=== PATIENT | male | born 1980 | race African-American/Black ===

== ENCOUNTER 2017-04-05 21:22 | Emergency (ER) | payer OTHER ==
[~2017-04-05] VITALS: Ht 182.9 cm; Wt 115.0 kg
[2017-04-05 21:23] VITALS: BP 173/98; PULSE 63; RESP 16; TEMP 98.3; O2SAT 100
--- NOTE | 2017-04-05 21:55 | PD ---
HPI Chief Complaint: Chest Pain Time Seen by Provider: 21:49 Travel History International Travel<30 days: No Contact w/Intl Traveler<30days: No Traveled to known affect area: No History of Present Illness HPI 36 year-old male presents to the emergency department by private transportation for complaint of right-sided anterior chest wall pain times one week. Patient states symptoms began 1 week ago when he injured himself at work while pulling a 75 pound cage out of a crate. Patient states he went to a local emergency department for evaluation was told that he had torn a chest muscle was started on Naprosyn and told to follow up as an outpatient. Patient states symptoms have persisted all week and took his last dose of Naprosyn this morning and no resolution of symptoms and decided to come to the emergency room at this time. Patient is not reporting any associated symptoms of nausea vomiting sweats or referred neck jaw back shoulder arm pain. Patient states that he has noted that his blood pressure becomes elevated associated with the pain which makes him feel short of breath. This was also noted at the emergency department with his initial visit last week. Patient states he has no chronic medical conditions takes no prescription medications other than recent prescribed Naprosyn. Patient denies history of hypertension dyslipidemia CAD COPD diabetes asthma tobacco use musculoskeletal pain GI issues or previous surgeries. Patient denies any allergies to medications. Patient rates his pain 5-8/10 in intensity and is worsened by direct palpation of the upper right anterior chest wall. Patient is not noticed any fever or chills. Patient has not had a cough. Patient denies pleuritic pain. Patient does not report any hemoptysis. Patient has not noticed any swelling or bruising redness increased warmth and has not sustained any abrasion to the chest wall. [facility] Past Medical History Narrative Medical Right anterior wall muscle injury, possible hypertension; no tobacco use alcohol use; nursing notes reviewed Immunizations Current: Yes Tetanus Vaccination: Unknown Influenza Vaccination: No Social History Alcohol Use: No Tobacco Use: Yes Substance Use: No Allergies-Medications (Allergen,Severity, Reaction): Coded Allergies: No Known Allergies (Unverified , 04/05/17) Narrative Medication Naprosyn Review of Systems Except as stated in HPI: all other systems reviewed are Neg General / Constitutional: No: Fever, Chills Eyes: No: Visual changes HENT: No: Congestion Cardiovascular: Positive: Chest Pain or Discomfort (right anterior chest wall) Respiratory: Positive: Shortness of Breath Gastrointestinal: No: Nausea, Vomiting, Abdominal Pain Genitourinary: No: Decreased Urinary Output, Flank Pain Musculoskeletal: No: Myalgias, Arthralgias Skin: No Rash Neurologic: No: Weakness, Dizziness, Syncope Psychiatric: No: Anxiety Endocrine: No: Heat Intolerance Hematologic/Lymphatic: No: Easy Bruising Physical Exam Narrative GENERAL: Well-developed well-nourished male in no acute distress no respiratory distress SKIN: Warm and dry. HEAD: Normocephalic. EYES: No scleral icterus. No injection or drainage. NECK: Supple, trachea midline. No JVD or lymphadenopathy. CARDIOVASCULAR: Regular rate and rhythm without murmurs, gallops, or rubs. Chest wall: Right anterior upper chest wall tenderness to direct palpation reproduces pain of presentation no ecchymosis no abrasion no increased warmth no crepitus no bony abnormality. RESPIRATORY: Breath sounds equal bilaterally. No accessory muscle use. GASTROINTESTINAL: Abdomen soft, non-tender, nondistended. MUSCULOSKELETAL: No cyanosis, or edema. BACK: Nontender without obvious deformity. No CVA tenderness. Data Data Last Documented VS Vital Signs Date Time Temp Pulse Resp B/P (MAP) Pulse Ox O2 Delivery O2 Flow Rate FiO2 04/05/17 22:01 65 16 99 04/05/17 22:00 Room Air 04/05/17 22:00 04/05/17 21:23 98.3 Orders Orders Electrocardiogram (04/05/17 21:49) Basic Metabolic Panel (Bmp) (04/05/17 21:49) Ckmb (Isoenzyme) Profile (04/05/17 21:49) Complete Blood Count With Diff (04/05/17 21:49) Magnesium (Mg) (04/05/17 21:49) Prothrombin Time / Inr (Pt) (04/05/17 21:49) Act Partial Throm Time (Ptt) (04/05/17 21:49) Troponin I (04/05/17 21:49) Chest, Single Ap (04/05/17 21:49) Ecg Monitoring (04/05/17 21:49) Bilateral Bp Monitoring (04/05/17 21:49) Iv Access Insert/Monitor (04/05/17 21:49) Oximetry (04/05/17 21:49) Oxygen Administration (04/05/17 21:49) Aspirin Chew (Aspirin Chew) (04/05/17 22:00) Sodium Chloride 0.9% Flush (Ns Flush) (04/05/17 22:00) CKMB (04/05/17 21:50) CKMB% (04/05/17 21:50) Ua Includes Microscopic (04/05/17 22:38) Ketorolac Inj (Toradol Inj) (04/05/17 22:45) Sodium Chlorid 0.9% 500 Ml Inj (Ns 500 M (04/05/17 22:45) Amlodipine (Norvasc) (04/05/17 23:30) Labs Laboratory Tests Test 04/05/17 21:50 04/05/17 22:55 White Blood Count 7.9 TH/MM3 Red Blood Count 4.73 MIL/MM3 Hemoglobin 14.4 GM/DL Hematocrit 42.6 % Mean Corpuscular Volume 90.2 FL Mean Corpuscular Hemoglobin 30.5 PG Mean Corpuscular Hemoglobin Concent 33.9 % Red Cell Distribution Width 14.0 % Platelet Count 283 TH/MM3 Mean Platelet Volume 8.1 FL Neutrophils (%) (Auto) 50.3 % Lymphocytes (%) (Auto) 40.6 % Monocytes (%) (Auto) 5.6 % Eosinophils (%) (Auto) 2.8 % Basophils (%) (Auto) 0.7 % Neutrophils # (Auto) 4.0 TH/MM3 Lymphocytes # (Auto) 3.2 TH/MM3 Monocytes # (Auto) 0.4 TH/MM3 Eosinophils # (Auto) 0.2 TH/MM3 Basophils # (Auto) 0.1 TH/MM3 CBC Comment DIFF FINAL Differential Comment Prothrombin Time 10.7 SEC Prothromb Time International Ratio 1.1 RATIO Activated Partial Thromboplast Time 33.3 SEC Blood Urea Nitrogen 15 MG/DL Creatinine 1.37 MG/DL Random Glucose 106 MG/DL Calcium Level 9.1 MG/DL Magnesium Level 2.1 MG/DL Sodium Level 137 MEQ/L Potassium Level 3.8 MEQ/L Chloride Level 105 MEQ/L Carbon Dioxide Level 26.7 MEQ/L Anion Gap 5 MEQ/L Estimat Glomerular Filtration Rate 70 ML/MIN Total Creatine Kinase 728 U/L Creatine Kinase MB 2.4 NG/ML Creatine Kinase MB % 0.3 % Troponin I LESS THAN 0.02 NG/ML Urine Color YELLOW Urine Turbidity CLEAR Urine pH 5.5 Urine Specific [place] 1.031 Urine Protein TRACE mg/dL Urine Glucose (UA) NEG mg/dL Urine Ketones TRACE mg/dL Urine Occult Blood NEG Urine Nitrite NEG Urine Bilirubin NEG Urine Urobilinogen 2.0 MG/DL Urine Leukocyte Esterase NEG Urine RBC 1 /hpf Urine WBC LESS THAN 1 /hpf Urine Mucus FEW /lpf MDM Medical Decision Making Medical Screen Exam Complete: Yes Emergency Medical Condition: Yes Medical Record Reviewed: Yes Interpretation(s) EKG: Normal sinus rhythm rate [address] elevation injury pattern or ectopy noted Troponin I less than 0.02 CK total 728 with normal range MB and MB percent Last Impressions Chest X-Ray 04/05/172148 Signed Impressions: Service Date/Time: Wednesday, April 05, 2017 21:57 - CONCLUSION: No acute disease. Kingsley Fontaine MD CBC & BMP Diagram 04/05/17 21:50 Calcium Level 9.1, Magnesium Level 2.1 Vital Signs Date Time Temp Pulse Resp B/P (MAP) Pulse Ox O2 Delivery O2 Flow Rate FiO2 04/05/17 22:01 65 16 99 04/05/17 22:00 99 Room Air 04/05/17 22:00 99 Room Air 04/05/17 22:00 65 16 150/79 (102) 170/97 (121) 04/05/17 21:23 98.3 63 16 173/98 (123) 100 Room Air Differential Diagnosis Chest pain, musculoskeletal pain, rib fracture, pneumothorax, ACS, TN, PE, pneumonia Narrative Course Patient placed on alarm security or surveillance monitor with continuous pulse oximetry; EKG performed shows sinus rhythm no acute ST elevation injury pattern or ectopy; patient administered aspirin 162 mg by mouth; specimens collected and sent for resulting EKG no acute injury pattern; troponin I less than 0.02; CK total is elevated but MB percent is in normal range and MB is not elevated consistent with probable musculoskeletal elevation associated with muscle tear Patient administered Toradol 30 mg IV @ 23:20 right chest wall pain 3/10 patient reports markedly improved and aware htn diagnosis will be started on antihypertensive medication mild rhabdomyolysis from muscle tear Diagnosis Primary Impression: Right-sided chest wall pain Additional Impressions: HTN (hypertension) Traumatic rhabdomyolysis Qualified Codes: T79.6XXA - Traumatic ischemia of muscle, initial encounter Referrals: Primary Care Physician 2 days Patient Instructions: General Instructions Additional Instructions: Increase fluid hydration Apply moist heat to right anterior chest wall associated with muscle tear Take blood pressure medication as prescribed and monitor blood pressure once daily Follow-up with your primary care provider call office on Thursday to schedule follow-up appointment Return to the emergency department for any concerns or change in condition Take muscle relaxant as needed for muscle spasm Med/Other Pt SpecificInfo: Prescription(s) given Scripts Amlodipine (Norvasc) 5 Mg Tab 5 MG PO DAILY for Blood Pressure Management, #30 TAB 0 Refills Prov: Ruth Zambrano MD 04/05/17 Methocarbamol (Robaxin) 750 Mg Tab 750 MG PO Q6HR for Muscle Spasm, #12 TAB 0 Refills Prov: Ruth Zambrano MD 04/05/17 Disposition: 01 DISCHARGE HOME Condition: Stable Ruth Zambrano MD Apr 05, 2017 21:54
[2017-04-05 22:00] VITALS: BP_SYST 170; BP_SYST 187; BP_DIAS 114; BP_DIAS 97; PULSE 65; RESP 16; O2SAT 99
[2017-04-05] MEDS ORDERED: SODIUM CHLORIDE 0.9% FLUSH 10 ML FLUSH IVF PRN (22:00)
[2017-04-05] MEDS ORDERED: ASPIRIN 81 MG CHEW TAB PO ONE (22:00)
[2017-04-05 22:08] LABS: BASOPHIL # 0.1 TH/MM3 (0-0.2); BASOPHIL % 0.7 % (0.0-2.0); EOSINOPHIL # 0.2 TH/MM3 (0-0.4); EOSINOPHIL % 2.8 % (0.0-4.0); HEMATOCRIT 42.6 % (39.0-51.0); HEMOGLOBIN 14.4 GM/DL (13.0-17.0); LYMPH % 40.6 % (9.0-44.0); LYMPHOCYTE # 3.2 TH/MM3 (1.0-4.8); MEAN CELL VOLUME 90.2 FL (80.0-100.0); MEAN CORPUSCULAR HEMOGLOBIN 30.5 PG (27.0-34.0); MEAN CORPUSCULAR HGB CONC 33.9 % (32.0-36.0); MEAN PLATELET VOLUME 8.1 FL (7.0-11.0); MONO % 5.6 % (0.0-8.0); MONOCYTE # 0.4 TH/MM3 (0-0.9); NEUT % 50.3 % (16.0-70.0); PLATELET COUNT 283 TH/MM3 (150-450); RED BLOOD COUNT 4.73 MIL/MM3 (4.50-5.90); WHITE BLOOD COUNT 7.9 TH/MM3 (4.0-11.0)
--- NOTE | 2017-04-05 22:12 | RADRPT ---
EXAM DATE/TIME: 04/05/2017 21:57 [facility] COMPARISON: No previous studies available for comparison. INDICATIONS : Chest pain with shortness of breath. MEDICAL HISTORY : None. SURGICAL HISTORY : None. ENCOUNTER: Initial ACUITY: 1 day PAIN SCORE: 5/10 LOCATION: Bilateral chest FINDINGS: A single view of the chest demonstrates the lungs to be symmetrically aerated without evidence of mas s, infiltrate or effusion. The cardiomediastinal contours are unremarkable. Osseous structures are intact. CONCLUSION: No acute disease. Kingsley Fontaine MD on April 05, 2017 at 22:09 Board Certified Radiologist. This report was verified electronically.
[2017-04-05 22:28] LABS: TROPONIN I LESS THAN 0.02 NG/ML (0.02-0.05)
[2017-04-05 22:33] LABS: BICARBONATE 26.7 MEQ/L (21.0-32.0); BLOOD UREA NITROGEN 15 MG/DL (7-18); CALCIUM 9.1 MG/DL (8.5-10.1); CHLORIDE 105 MEQ/L (98-107); CREATININE 1.37 MG/DL (0.60-1.30); GLOMERULAR FILTRATION RATE 70 ML/MIN (>89); GLUCOSE,RANDOM 106 MG/DL (74-106); MAGNESIUM 2.1 MG/DL (1.5-2.5); SODIUM (NA) 137 MEQ/L (136-145)
[2017-04-05] MEDS ORDERED: KETOROLAC TROMETHAMINE 30 MG/ML (IVP) VIAL IV PUSH ONE (22:45)
[2017-04-05] MEDS ORDERED: SODIUM CHLORID 0.9% 500 ML INJ 500 ML IV ONE (22:45)
[2017-04-05 22:52] LABS: INTERNATIONAL NORMALIZED RATIO 1.1 RATIO; PROTHROMBIN TIME - PATIENT 10.7 SEC (9.8-11.6)
[2017-04-05 23:07] LABS: BILIRUBIN, URINE NEG (NEG); BLOOD, URINE NEG (NEG); GLUCOSE,URINE NEG (NEG); KETONE, URINE TRACE mg/dL (NEG); MUCUS URINE FEW /lpf (OCC); NITRITE,URINE NEG (NEG); PH, URINE 5.5 (5.0-8.5); URINE COLOR YELLOW (YELLW/STRAW); URINE LEUKOCYTE ESTERASE NEG (NEG)
[2017-04-05 23:20] VITALS: BP_SYST 151; BP_SYST 160; BP_DIAS 101; BP_DIAS 83; PULSE 62
[2017-04-05] MEDS ORDERED: AMLO5 PO (23:25)
[2017-04-05] MEDS ORDERED: ROBA750T PO (23:25)
[2017-04-05] MEDS ORDERED: amLODIPine BESYLATE 5 MG TAB PO ONE (23:30)
--- NOTE | 2017-04-06 18:16 | EKG ---
Date Performed: 04/05/2017 Time Performed: 21:38:28 PTAGE: 36 years EKG: Sinus rhythm NORMAL ECG NO PREVIOUS TRACING DOCTOR: Ana Doan Interpretating Date/Time 04/06/2017 18:15:43
== END 2017-04-05 23:38 | disposition home or self-care (01) ==
LOC: NEPC 21:22
DX: T79.6XXA Traumatic ischemia of muscle, initial encounter (principal); R07.89 Other chest pain; I10 Essential (primary) hypertension; X50.9XXA Other and unspecified overexertion or strenuous movements or postures, initial encounter; Y99.0 Civilian activity done for income or pay; Z72.0 Tobacco use; Z88.8 Allergy status to other drugs, medicaments and biological substances
CPT/HCPCS: 71045; 80048; 81001; 82550; 82552; 83735; 84484; 85025; 85610; 85730; 93005; 96361; 96374; 99285; J1885; J7040